=== PATIENT | female | born 1950 | race Caucasian/White ===

== ENCOUNTER → 2017-02-12 | Outpatient (CLI) | payer MEDICARE, BC ==
[~2017-02-12] MED LIST: ASPIRIN 81M81 MG/TA2 PO; CYMBALTA60 M1 PO; DECADRON 4MG TAB4 MG PO; EZ TEARS OU; EZ TEARS PO; FEMARA PO; LOTENSIN 1010 MG/TAB PO; LOTREL 5/10MG C1 CAP PO; MASON NATURAL2000 IU PO; MULTI VITAMINS1 TAB PO; MYRBETR50MG PO; NORCO 325 MG-51 TAB PO; NORCO 325 MG-7.1 TAB PO; NORVASC 10MG10 MG PO; PREMARIN V0.625 MG/G VG; PREVACID 15MG15 M1 PO; THE MEDICINE S200 M2 PO; TOPROL XL 50MG50 MG PO; TOPROL XL100 MG PO; TRAZODONE50 MG PO; VITAMIN D1000 IU PO
== END ==
LOC: MC.RAD 09:28
DX: Z12.31 Encounter for screening mammogram for malignant neoplasm of breast (principal)

== ENCOUNTER 2017-10-17 16:10 | Observation (INO) | payer MEDICARE, BC ==
[~2017-10-17] VITALS: Ht 162.6 cm; Wt 79.2 kg
[~2017-10-17 16:10] MED LIST changes: +CYMBALTA 60MG60 MG PO; -CYMBALTA60 M1 PO
[2017-12-09] VITALS (14 sets, daily range): BP systolic 102–143; BP diastolic 52–68; PULSE 58–78; TEMP 97.6–98.3
[2017-12-09] MEDS ORDERED: OXYGEN MC (06:01)
[2017-12-09 06:37] LABS: BASO % 0.5 % (0.0-2.0); EOS # 0.1 (0.0-0.7); EOS % 1.8 % (0-4.0); GRAN % 47.8 % (42.2-75.2); HEMATOCRIT 42.6 % (37.0-47.0); HEMOGLOBIN 13.9 g/dl (12.5-16.0); LYMPH # 2.6 (1.2-3.4); LYMPH % 41.1 % (20.0-51.0); MEAN CELL VOLUME 95 fl (80.0-100.0); MEAN CORPUSCULAR HEMOGLOBIN 31 pg (27.0-31.0); MEAN CORPUSCULAR HGB CONC 33 g/dl (33.0-37.0); MEAN PLATELET VOLUME 9.5 fl (7.4-10.4); MONO # 0.5 (0.1-0.6); MONO % 8.6 % (1.7-9.3); PLATELET COUNT 192 K/mm3 (130-400); RED BLOOD COUNT 4.51 M/mm3 (4.10-5.30); REDCELL DISTRIBUTION WIDTH-CV 12.8 % (11.5-14.5)
[2017-12-09 07:06] LABS: CALCIUM 9.5 mg/dL (8.4-10.2); CREATININE, serum 0.62 mg/dL (0.52-1.25); POTASSIUM 3.7 mmol/L (3.4-5.0)
[2017-12-10 00:52] VITALS: BP 104/49; PULSE 70; TEMP 98.2
[2017-12-10 04:03] VITALS: BP 126/50; PULSE 74; TEMP 97.6
[2017-12-10 09:58] VITALS: BP 134/55; PULSE 72; TEMP 98.4
== END 2017-12-10 11:03 | disposition home or self-care (01) ==
LOC: SURG 12-09 05:29 → INPTSU 12-09 05:29 → SURG 12-09 07:30
PROVIDERS: Urology
DX: N81.11 Cystocele, midline (principal); N99.3 Prolapse of vaginal vault after hysterectomy; F41.9 Anxiety disorder, unspecified; F32.9 Major depressive disorder, single episode, unspecified; K21.9 Gastro-esophageal reflux disease without esophagitis; I10 Essential (primary) hypertension; E78.00 Pure hypercholesterolemia, unspecified; M19.90 Unspecified osteoarthritis, unspecified site; Z90.710 Acquired absence of both cervix and uterus; Z90.49 Acquired absence of other specified parts of digestive tract; Z88.1 Allergy status to other antibiotic agents; Z88.5 Allergy status to narcotic agent; Z85.3 Personal history of malignant neoplasm of breast; Z82.49 Family history of ischemic heart disease and other diseases of the circulatory system; Z82.3 Family history of stroke; Z80.0 Family history of malignant neoplasm of digestive organs; Z82.61 Family history of arthritis
CPT/HCPCS: A4314; C1713; C1781; G0378; J0690; J1100; J1885; J2405; J2704; J3010; J7120

== ENCOUNTER → 2018-02-13 | Outpatient (CLI) | payer MEDICARE, BC ==
[~2018-02-13] MED LIST changes: +OXYGEN MC
== END ==
LOC: MC.RAD 12:48
DX: Z12.31 Encounter for screening mammogram for malignant neoplasm of breast (principal); Z98.890 Other specified postprocedural states; Z85.3 Personal history of malignant neoplasm of breast; Z92.3 Personal history of irradiation

== ENCOUNTER → 2019-03-16 | Outpatient (CLI) | payer MEDICARE, BC | LOC: MC.RAD 10:00 | DX: Z12.31 Encounter for screening mammogram for malignant neoplasm of breast (principal); Z17.0 Estrogen receptor positive status [ER+]; Z85.3 Personal history of malignant neoplasm of breast ==

== ENCOUNTER → 2020-03-23 | Outpatient (CLI) | payer MEDICARE, BC | LOC: MC.RAD 03-20 09:00 | DX: Z12.31 Encounter for screening mammogram for malignant neoplasm of breast (principal); Z98.890 Other specified postprocedural states; C50.412 Malignant neoplasm of upper-outer quadrant of left female breast ==

== ENCOUNTER 2020-12-26 08:57 | Emergency (ER) | payer MEDICARE, BC ==
[2005-05-13 06:12] VITALS: BP 150/48
[~2020-12-26] VITALS: Ht 162.6 cm; Wt 77.3 kg
[2020-12-26 09:07] VITALS: TEMP 97.3
[2020-12-26] MEDS ORDERED: MASON NATURAL2000 IU PO (09:15)
[2020-12-26 09:29] LABS: BASO % 0.5 % (0.0-2.0); EOS # 0.1 (0.0-0.7); EOS % 1.6 % (0-4.0); GRAN # 3.6 (1.4-6.5); GRAN % 44.7 % (42.2-75.2); HEMATOCRIT 42.4 % (37.0-47.0); HEMOGLOBIN 13.6 g/dl (12.5-16.0); LYMPH # 3.6 (1.2-3.4); LYMPH % 44.7 % (20.0-51.0); MEAN CELL VOLUME 97 fl (80.0-100.0); MEAN CORPUSCULAR HEMOGLOBIN 31 pg (27.0-31.0); MEAN CORPUSCULAR HGB CONC 32 g/dl (33.0-37.0); MEAN PLATELET VOLUME 9.5 fl (7.4-10.4); MONO # 0.7 (0.1-0.6); MONO % 8.4 % (1.7-9.3); PLATELET COUNT 257 K/mm3 (130-400); RED BLOOD COUNT 4.36 M/mm3 (4.10-5.30); REDCELL DISTRIBUTION WIDTH-CV 12.8 % (11.5-14.5)
[2020-12-26 09:38] LABS: ALANINE AMINOTRANSFERASE 18 U/L (4-34); ALBUMIN 3.9 gm/dL (3.5-5.0); ALKALINE PHOSPHATASE 85 U/L (50-136); ANION GAP 8 mmol/L (7-16); AST,SGOT 25 U/L (15-37); BILIRUBIN,TOTAL 0.4 mg/dL (0.0-1.0); BLOOD UREA NITROGEN 17 mg/dL (7-17); CALCIUM 9.9 mg/dL (8.4-10.2); CARBON DIOXIDE 27 mmol/L (22-30); CHLORIDE 106 mmol/L (98-107); CREATININE, serum 0.56 (0.52-1.25); GLUCOSE 122 mg/dL (74-106); POTASSIUM 3.9 mmol/L (3.4-5.0); SODIUM 141 mmol/L (137-145); TOTAL PROTEIN 7.4 gm/dL (6.4-8.2)
[2020-12-26 09:50] LABS: TROPONIN-I < 0.012 ng/mL (0.000-0.035)
[2020-12-26 10:02] LABS: PROTHROMBIN TIME 11.4 SECONDS (9.7-12.8)
[2020-12-26 10:28] LABS: PARTIAL THROMBOPLASTIN TIME 29.2 SECONDS (26.0-37.0)
[2020-12-26 11:18] VITALS: BP 109/45; PULSE 55
== END 2020-12-26 11:18 | disposition short-term general hospital (02) ==
LOC: COL.ER 08:57
PROVIDERS: Emergency Medicine
DX: I25.9 Chronic ischemic heart disease, unspecified (principal); I25.110 Atherosclerotic heart disease of native coronary artery with unstable angina pectoris; I10 Essential (primary) hypertension; Z88.2 Allergy status to sulfonamides; Z20.822 Contact with and (suspected) exposure to COVID-19
CPT/HCPCS: J1644; J2270; J2405; J3101

== ENCOUNTER → 2021-03-09 | Outpatient (CLI) | payer MEDICARE, BC | LOC: COL.RAD 12:10 | DX: D44.6 Neoplasm of uncertain behavior of carotid body (principal) | CPT/HCPCS: Q9967 ==

== ENCOUNTER → 2021-03-26 | Outpatient (CLI) | payer MEDICARE, BC | LOC: MC.RAD 10:15 | DX: Z12.31 Encounter for screening mammogram for malignant neoplasm of breast (principal); Z98.890 Other specified postprocedural states; Z92.3 Personal history of irradiation ==

== ENCOUNTER 2021-04-06 17:08 | Outpatient (RCR) | payer MEDICARE, BC | END 2021-04-06 17:20 | disposition home or self-care (01) | LOC: COL.CR 17:08 | DX: I21.11 ST elevation (STEMI) myocardial infarction involving right coronary artery (principal); Z95.818 Presence of other cardiac implants and grafts ==

== ENCOUNTER 2022-02-01 15:57 | Outpatient (RCR) | payer SELFPAY | END 2022-02-02 | LOC: COL.CR | DX: Z29.8 Encounter for other specified prophylactic measures (principal) ==

== ENCOUNTER 2022-02-11 15:42 | Outpatient (RCR) | payer SELFPAY | END 2022-03-05 | LOC: COL.CR | DX: Z29.8 Encounter for other specified prophylactic measures (principal) ==

== ENCOUNTER → 2022-03-27 | Outpatient (CLI) | payer MEDICARE, BC | LOC: MC.RAD 09:44 | DX: Z12.31 Encounter for screening mammogram for malignant neoplasm of breast (principal) ==

== ENCOUNTER 2022-04-03 14:38 | Outpatient (RCR) | payer SELFPAY | END 2022-04-04 | LOC: COL.CR | DX: Z29.8 Encounter for other specified prophylactic measures (principal) ==

== ENCOUNTER 2022-05-01 14:35 | Outpatient (RCR) | payer SELFPAY | END 2022-05-05 | LOC: COL.CR | DX: Z29.8 Encounter for other specified prophylactic measures (principal) ==

== ENCOUNTER → 2022-06-05 | Outpatient (RCR) | payer SELFPAY | LOC: COL.CR | DX: Z29.8 Encounter for other specified prophylactic measures (principal) ==